=== PATIENT | male | born 1940 | race Caucasian/White ===

== ENCOUNTER 2018-04-23 13:42 | Inpatient (IN) | payer MEDICARE ==
[~2018-04-23] VITALS: Ht 190.5 cm; Wt 83.5 kg
[~2018-04-23 13:42] MED LIST: ARICEPT5 MG PO; GLUCOSAMINE &1 EAC1; MULTI-VITAMIN1 EACH; SINEMET 25-1001 EACH PO; VITAMIN B12-FO1 EACH
[2018-04-23] MEDS ORDERED: SODIUM CHLORIDE 0.9% 1000ML 1,000 ML IV STA (14:07)
[2018-04-23 14:16] LABS: CLARITY,URINE SL CLOUDY (CLEAR); COLOR,URINE YELLOW (YELLOW)
[2018-04-23 14:17] LABS: BILIRUBIN,URINE NEGATIVE (NEGATIVE); KETONES,URINE NEGATIVE (NEGATIVE); LEUKOCYTE ESTERASE ,URINE 2+ (NEGATIVE); NITRITE,URINE NEGATIVE (NEGATIVE); PROTEIN,URINE DIPSTICK 2+ (NEGATIVE); URINE UROBILINOGEN 0.2 mg/dL (0.2 - 1)
[2018-04-23 14:32] LABS: AMORPHOUS SEDIMENT,URINE MODERATE (FEW); BACTERIA,URINE MANY /HPF; WBC,URINE (MAN) 21-50 /HPF (0-5)
[2018-04-23 14:49] LABS: BASOPHILS # (AUTO) 0.1 (0.0-0.1); BASOPHILS % 0.4 % (0.0-1.0); EOSINOPHILS # (AUTO) 0.1 (0.0-0.4); EOSINOPHILS % 0.5 % (0.0-6.0); HEMATOCRIT 38.2 % (38.2-49.6); LYMPHOCYTES # (AUTO) 0.7 (1.0-3.2); LYMPHOCYTES % 5.1 % (18.0-39.1); MEAN CORPUSCULAR HEMOGLOBIN 32.3 pg (28-32); MEAN CORPUSCULAR VOLUME 94.8 fL (81-99); MONOCYTES % 7.4 % (4.4-11.3); NEUTROPHILS % 86.3 % (38.7-80.0); PLATELET COUNT 199 x10e3/uL (140-360); RED BLOOD COUNT 4.03 x10e6/uL (4.3-5.7); RED CELL DISTRIBUTION WIDTH 13.9 % (11.7-14.4)
[2018-04-23 15:00] LABS: INR 1.03; PARTIAL THROMBOPLASTIN TIME 28.3 seconds (23.8-35.5); PROTHROMBIN TIME 14.4 seconds (11.9-14.5)
[2018-04-23 15:07] LABS: ALANINE AMINOTRANSFERASE 13 IU/L (0-55); ALBUMIN 3.1 g/dL (3.5-5.0); ALBUMIN/GLOBULIN RATIO 0.9 (0.8-2.0); ALKALINE PHOSPHATASE 96 IU/L (40-150); ANION GAP 14.9 mmol/L (8-16); BLOOD UREA NITROGEN 41 mg/dL (7-26); BUN/CREATININE RATIO 30 (6-25); CALCIUM 9.5 mg/dL (8.4-10.2); CARBON DIOXIDE 23 mmol/L (22-29); CHLORIDE 106 mmol/L (98-107); CREATINE KINASE 110 IU/L (30-200); CREATININE, SERUM 1.35 mg/dL (0.72-1.25); EST GLOMERULAR FILTRATION RATE 51 ML/MIN (60-); GLUCOSE 104 mg/dL (74-118); LIPASE 36 U/L (8-78); POTASSIUM 3.9 mmol/L (3.5-5.1); SODIUM 140 mmol/L (136-145)
[2018-04-23] MEDS ORDERED: CEFTRIAXONE SOD 1 GM VIAL IV SCH ×2 (15:15→16:00)
[2018-04-23 15:30] LABS: THYROID STIMULATING HORMONE 0.809 uIU/mL (0.350-4.940)
--- NOTE | 2018-04-23 15:31 | Diagnostic Imaging Report ---
EXAMINATION: Head CT HISTORY: Headache. COMPARISON: None. TECHNIQUE: Multidetector axial images were obtained without contrast from the foramen magnum to the vertex . The images were reconstructed using brain and bone algorithms. Thin section brain images were reformatted into coronal and sagittal planes. Image quality: Motion/streaking artifact limits the evaluation of the study. Dose modulation, iterative reconstruction, and/or weight based adjustment of the mA/kV was utilized to reduce the radiation dose to as low as reasonably achievable. FINDINGS: Parenchyma: 1. No abnormal densities. 2. No mass or hemorrhage. No CT evidence of acute territorial vascular insult. Extra-axial spaces:No abnormal density. No extra-axial fluid collections Brain volume: Normal for age. Ventricles: No hydrocephalus or displacement. Arteries: No density suggestive of thrombus. Dural sinuses: No abnormal density. Extra-axial spaces: No abnormal density. Foramen magnum: No mass, Chiari malformation, or basilar invagination. Sella: No obvious mass. Paranasal/mastoid sinuses: Partial opacification of the tip of the right mastoid air cells, likely minimal effusion. Skull/Scalp: No lytic or blastic lesions. No fractures. IMPRESSION: Suboptimal study due to motion. Grossly no acute intracranial abnormalities, particularly no mass, hemorrhage or hydrocephalus. Signed by: Dr. Earnestine Marte M.D. on 04/23/2018 3:28 PM
--- NOTE | 2018-04-23 15:40 | Diagnostic Imaging Report ---
EXAMINATION: CT of the abdomen and pelvis without contrast. TECHNIQUE: Spiral CT images of the abdomen and pelvis were performed from the lung bases to the lesser trochanters. No intravenous contrast was given per renal stone protocol. Coronal and sagittal reformatted images were obtained. COMPARISON: None. CLINICAL HISTORY:Concern for renal stone DISCUSSION: ABSENCE OF INTRAVENOUS CONTRAST DECREASES SENSITIVITY FOR DETECTION OF FOCAL LESIONS AND VASCULAR PATHOLOGY. Examination is further limited secondary to beam hardening artifact from the patient's arms remaining at his sides through the examination. ABDOMEN/PELVIS: LOWER THORAX: Subsegmental atelectasis in the dependent portions of the lower lobes. Trace pericardial effusion. HEPATOBILIARY:No focal hepatic lesion or intrahepatic biliary ductal dilatation. The gallbladder has been removed. SPLEEN: No splenomegaly. PANCREAS: No focal masses or ductal dilatation. ADRENALS: No adrenal nodules. KIDNEYS/URETERS: No hydronephrosis. No renal, ureteral, or bladder calculi. Evaluation for renal mass lesion is markedly limited by beam hardening artifact as described above. PELVIC ORGANS/BLADDER: Suprapubic catheter (balloon retention) lies within the urinary bladder, which is collapsed. Coarse prostatic calcifications. PERITONEUM/RETROPERITONEUM: No ascites. No pneumoperitoneum. LYMPH NODES: No pelvic sidewall, retroperitoneal, or mesenteric lymphadenopathy. VESSELS: Limited evaluation without intravenous contrast. Atherosclerotic calcification of the abdominal aorta without aneurysmal dilatation. GI TRACT: Large amount of fecal material within the rectum. The large bowel contains scattered diverticula but shows no evidence of distention or wall thickening. The appendix is not definitively identified. No right lower quadrant inflammatory change. The stomach is collapsed with prominence of the rugal folds. No small bowel dilatation to suggest obstruction. BONES AND SOFT TISSUES: Small fat-containing right inguinal hernia area otherwise no focal soft tissue abnormalities. No osseous destructive lesions. Multilevel degenerative disc changes of the lumbar spine. IMPRESSION: No CT evidence of urolithiasis. Apparent urinary bladder wall thickening is likely due to decompression around a balloon retention suprapubic catheter. Correlate with urinalysis. Large bowel diverticulosis without evidence of diverticulitis. Large amount of fecal material within the rectum. Correlate for constipation. Trace pericardial effusion. Signed by: Dr. Aftab Lee M.D. on 04/23/2018 3:37 PM
--- NOTE | 2018-04-23 15:55 | Diagnostic Imaging Report ---
Examination: Single AP view of the chest. COMPARISON: None. INDICATION: Shortness of breath DISCUSSION: The lungs are well-inflated. No focal consolidation, pleural effusion, or pneumothorax. Tortuous thoracic aorta with otherwise normal cardiomediastinal contour. No overt pulmonary edema. No acute osseous abnormalities. Degenerative changes of the right shoulder girdle. IMPRESSION: No acute cardiopulmonary abnormality. Signed by: Dr. Aftab Lee M.D. on 04/23/2018 3:52 PM
[2018-04-23 16:50] VITALS: BP 150/85
[2018-04-23] MEDS ORDERED: CHONDROITIN SU100 GM (17:17)
[2018-04-23] MEDS ORDERED: CHOLECALCIFEROL1 GM PO (17:17)
[2018-04-23] MEDS ORDERED: ACIDOPHILUS1 EAC1 (17:17)
[2018-04-23] MEDS ORDERED: ARICEPT5 MG PO (17:17)
[2018-04-23] MEDS ORDERED: GLUCOSAMINE1000 MG (17:17)
[2018-04-23] MEDS ORDERED: ALFUZOSIN HCL10 MG (17:17)
[2018-04-23] MEDS ORDERED: LACTULOSE20 GM/30 M PO (17:17)
[2018-04-23] MEDS ORDERED: LEXAPRO10 MG PO (17:17)
[2018-04-23] MEDS ORDERED: LORAZEPAM0.5 MG PO (17:17)
[2018-04-23 17:30] VITALS: BP 150/85
[2018-04-23] MEDS: ACETAMINOPHEN 325 MG TAB PO PRN (19:43)
[2018-04-23 20:00] VITALS: BP 158/69
[2018-04-23] MEDS: CARBIDOPA/LEVODOPA 25/100 TAB PO SCH (21:21)
[2018-04-24] VITALS (10 sets, daily range): BP systolic 121–159; BP diastolic 57–81
[2018-04-24] MEDS: ACETAMINOPHEN 325 MG TAB PO PRN ×3 (04:45→17:34)
[2018-04-24] MEDS: DOCUSATE SODIUM 100 MG CAP PO SCH ×2 (08:51→17:34)
[2018-04-24] MEDS: FAMOTIDINE 20 MG TAB PO SCH ×2 (08:51→17:34)
[2018-04-24] MEDS: CEFEPIME HCL 1 GM VIAL IV SCH ×2 (08:51→21:31)
[2018-04-24] MEDS: SENNOSIDES 8.6 MG TAB PO SCH ×2 (08:51→21:31)
[2018-04-24] MEDS: ESCITALOPRAM OXALATE 10 MG TAB PO SCH (08:51)
[2018-04-24] MEDS: CARBIDOPA/LEVODOPA 25/100 TAB PO SCH ×3 (08:51→21:31)
[2018-04-24] MEDS: SODIUM CHLORIDE 0.9% 1000ML 1,000 ML IV SCH ×2 (10:49→23:35)
[2018-04-24 11:41] LABS: BASOPHILS % 0.4 % (0.0-1.0); HEMATOCRIT 40.4 % (38.2-49.6); HEMOGLOBIN 13.1 g/dL (14.0-18.0); LYMPHOCYTES # (AUTO) 0.7 (1.0-3.2); LYMPHOCYTES % 6.4 % (18.0-39.1); MEAN CORPUSCULAR HEMOGLOBIN 31.6 pg (28-32); MEAN CORPUSCULAR HGB CONC 32.4 g/dL (31-35); MEAN CORPUSCULAR VOLUME 97.6 fL (81-99); MONOCYTES # (AUTO) 0.9 (0.2-0.8); MONOCYTES % 8.3 % (4.4-11.3); NEUTROPHILS % 84.6 % (38.7-80.0); PLATELET COUNT 158 x10e3/uL (140-360); RED BLOOD COUNT 4.14 x10e6/uL (4.3-5.7); RED CELL DISTRIBUTION WIDTH 14.2 % (11.7-14.4)
[2018-04-24 11:53] LABS: ANION GAP 13.7 mmol/L (8-16); BLOOD UREA NITROGEN 29 mg/dL (7-26); BUN/CREATININE RATIO 25 (6-25); CALCIUM 9.3 mg/dL (8.4-10.2); CARBON DIOXIDE 25 mmol/L (22-29); CHLORIDE 106 mmol/L (98-107); CREATININE, SERUM 1.14 mg/dL (0.72-1.25); EST GLOMERULAR FILTRATION RATE > 60 ML/MIN (60-); GLUCOSE 97 mg/dL (74-118); POTASSIUM 3.7 mmol/L (3.5-5.1); SODIUM 141 mmol/L (136-145)
--- NOTE | 2018-04-24 13:54 | History and Physical ---
PRIMARY CARE PHYSICIAN: Unknown. CHIEF COMPLAINT: Confusion. HISTORY OF PRESENT ILLNESS: This is a 77-year-old male with a history of Parkinson's disease and dementia, now developing confusion and was sent to the hospital. He was found to have urinary tract infection. He was admitted for further evaluation and management. Patient unable to provide any history. PAST MEDICAL HISTORY: Dementia, Parkinson's disease, nonhealing right foot ulcer, and peripheral vascular disease. PAST SURGICAL HISTORY: Unknown. ALLERGIES: PER ELECTRONIC MEDICAL RECORD. FAMILY HISTORY AND SOCIAL HISTORY: Unknown. MEDICATIONS: Per electronic medical record. REVIEW OF SYSTEMS: Unobtainable. PHYSICAL EXAMINATION VITAL SIGNS: Have been reviewed. GENERAL: A tired-appearing man, resting in bed. HEENT: Anicteric. CARDIOVASCULAR: Normal S1 and S2. LUNGS: He has moderate breath sounds. ABDOMEN: Soft, nontender, and nondistended. He has suprapubic catheter in place appearing clean. EXTREMITIES: No edema or calf tenderness. NEUROLOGIC: He is confused, moving all extremities. SKIN: Dry. PSYCHIATRIC: Flat affect. LABS: Reviewed. MEDICATIONS: Reviewed. ASSESSMENT: A 77-year-old man with 1. Complicated catheter-associated urinary tract infection present on admission. 2. Sepsis. 3. Dementia. 4. Acute kidney injury. 5. Parkinson's disease. 6. Fecal retention. 7. Diverticulosis. 8. Physical deconditioning. PLAN 1. Antibiotics, cefepime and IV fluids for sepsis and urinary tract infection. 2. Follow up cultures. 3. Physical therapy consultation. 4. Follow up renal function. 5. Obtain labs now. 6. Bowel regimen. 7. Resume Sinemet. 8. Resume Aricept. 9. Prophylaxis, we will use Lovenox and Pepcid. 10. Disposition, follow up on cultures and labs. Job#: [id number] DANNA
[2018-04-24] MEDS: ENOXAPARIN SOD INJ 40 MG/0.4 ML SYR SC SCH (17:34)
[2018-04-24] MEDS: DONEPEZIL HCL 5 MG TAB PO SCH (21:31)
[2018-04-25] VITALS (7 sets, daily range): BP systolic 126–165; BP diastolic 63–93
[2018-04-25] MEDS: ACETAMINOPHEN 325 MG TAB PO PRN (00:53)
[2018-04-25] MEDS: FAMOTIDINE 20 MG TAB PO SCH ×2 (10:13→17:26)
[2018-04-25] MEDS: CEFEPIME HCL 1 GM VIAL IV SCH ×2 (10:13→21:39)
[2018-04-25] MEDS: ESCITALOPRAM OXALATE 10 MG TAB PO SCH (10:13)
[2018-04-25] MEDS: QUETIAPINE FUMARATE 25 MG TAB PO PRN (10:13)
[2018-04-25] MEDS: SENNOSIDES 8.6 MG TAB PO SCH ×2 (10:13→20:11)
[2018-04-25] MEDS: DOCUSATE SODIUM 100 MG CAP PO SCH ×2 (10:13→17:26)
[2018-04-25] MEDS: CARBIDOPA/LEVODOPA 25/100 TAB PO SCH ×3 (10:13→20:11)
[2018-04-25] MEDS: SODIUM CHLORIDE 0.9% 1000ML 1,000 ML IV SCH (13:16)
[2018-04-25] MEDS: ENOXAPARIN SOD INJ 40 MG/0.4 ML SYR SC SCH (17:26)
[2018-04-25] MEDS: DONEPEZIL HCL 5 MG TAB PO SCH (20:11)
[2018-04-25] MEDS: LORAZEPAM 0.5 MG TAB PO PRN (20:11)
[2018-04-26] VITALS (7 sets, daily range): BP systolic 128–187; BP diastolic 72–90
--- NOTE | 2018-04-26 01:39 | Progress Note ---
DATE: April 25, 2018 ADDENDUM Patient does not have aspiration pneumonia. Job#: [id number] JOSE
--- NOTE | 2018-04-26 01:44 | Progress Note ---
DATE: April 25, 2018 TIME: 8:10 a.m. OVERNIGHT: Gram-negative rods in the urine. REVIEW OF SYSTEMS: Unreliable. PHYSICAL EXAMINATION VITAL SIGNS: Reviewed. GENERAL APPEARANCE: A tired-appearing man resting in bed. HEENT: Anicteric. CARDIOVASCULAR: Normal S1 and S2. LUNGS: Normal breath sounds. ABDOMEN: Soft, nontender, and nondistended. He has suprapubic catheter in place. EXTREMITIES: No edema. SKIN: Dry. PSYCHIATRIC: Flat affect. NEUROLOGICAL: Confused. LABS: Reviewed. MEDICATIONS: Reviewed. ASSESSMENT: A 77-year-old man with: 1. Complicated catheter-associated urinary tract infection, present on admission. 2. Sepsis. 3. Dementia. 4. Acute kidney injury. 5. Parkinson's disease. 6. Fecal retention. 7. Diverticulosis. 8. Physical deconditioning. 9. Gram-negative huy urinary tract infection. PLAN 1. Acute kidney injury, resolving. 2. Continue antibiotics. 3. Follow up cultures. 4. Monitor closely. 5. Continue medication regimen. 6. Prophylaxis for aspiration pneumonia. Job#: [id number] RTY
[2018-04-26] MEDS: FAMOTIDINE 20 MG TAB PO SCH ×2 (07:52→16:51)
[2018-04-26] MEDS: DOCUSATE SODIUM 100 MG CAP PO SCH ×2 (08:00→16:51)
[2018-04-26] MEDS: SENNOSIDES 8.6 MG TAB PO SCH ×2 (08:00→20:43)
[2018-04-26] MEDS: CEFEPIME HCL 1 GM VIAL IV SCH ×2 (08:00→20:43)
[2018-04-26] MEDS: CARBIDOPA/LEVODOPA 25/100 TAB PO SCH ×2 (08:00→14:38)
[2018-04-26] MEDS: ESCITALOPRAM OXALATE 10 MG TAB PO SCH (08:00)
[2018-04-26] MEDS ORDERED: CARBIDOPA/LEVODOPA 25/100 TAB PO SCH (15:00)
[2018-04-26] MEDS: ENOXAPARIN SOD INJ 40 MG/0.4 ML SYR SC SCH (16:51)
[2018-04-26] MEDS: SODIUM CHLORIDE 0.9% 1000ML 1,000 ML IV SCH ×2 (19:04→22:00)
[2018-04-26] MEDS: LORAZEPAM 0.5 MG TAB PO PRN (19:33)
[2018-04-26] MEDS: DONEPEZIL HCL 5 MG TAB PO SCH (20:43)
--- NOTE | 2018-04-26 22:03 | Progress Note ---
DATE: April 26, 2018 TIME: 12:50 p.m. OVERNIGHT: No acute events. REVIEW OF SYSTEMS: Unreliable. PHYSICAL EXAMINATION VITAL SIGNS: T 98.4, P 66, R 20, BP 151/78, SpO2 95% on room air. GENERAL APPEARANCE: This is a very tired-appearing man, resting in bed. HEENT: Normocephalic. Oral mucosa dry and intact with fair dentition and midline trachea. CV: S1 and S2 appreciated without any click, murmur, or rub; regular rate noted. LUNGS: Clear to auscultation at bases. ABDOMEN: Soft, nontender, and nondistended. Suprapubic catheter in place and secured by binder placed by nurses staff to avoid displacement. EXTREMITIES: Without edema. SKIN: Dry. PSYCHIATRIC: Flat affect. NEUROLOGIC: Oriented to self only. Follows one-step commands with some difficulty. Bilateral zyglo technician with right greater than left and equally weak. LABS: Reviewed. MEDICATIONS 1. Docusate sodium 100 mg p.o. b.i.d. 2. Pepcid 20 mg b.i.d. 3. Lovenox 20 mg daily. 4. Sinemet t.i.d. 5. Senokot q.12. 6. Cefepime IV q.12. 7. Lexapro 20 mg p.o. daily. 8. Ativan 0.5 mg p.r.n. q.8. 9. Aricept at bedtime. 10. NS at 75. 11. Seroquel q.12 hours p.r.n. agitation. 12. Tylenol p.r.n. ASSESSMENT AND PLAN: This is a 77-year-old man with: 1. Complicated catheter-associated urinary tract infection present on admission. Continue antibiotics. 2. Sepsis, resolving. 3. Dementia. Medications as above. 4. Acute kidney injury. Follow up a.m. values. 5. Parkinson's disease. Sinemet, dosing schedule adjusted per discussion with RN as per my request. 6. Fecal retention. Medications per list. 7. Diverticulosis, monitor. 8. Physical deconditioning. 9. Gram-negative rods urinary tract infection. Continue antibiotics. 10. Prophylaxis. Pepcid and ALVINA. DISPOSITION: Continue with aspiration precaution, medication regimen. Discharge planning discussed with business case analyst on this day. PT eval and treat order noted. Dictated by: Car Steve NP Job#: [id number] RTY
[2018-04-27] VITALS (7 sets, daily range): BP systolic 128–158; BP diastolic 70–83
--- NOTE | 2018-04-27 01:39 | Consultation ---
DATE OF CONSULTATION: REASON FOR CONSULTATION: Urinary tract infection. HISTORY OF PRESENT ILLNESS: Suprapubic tube and urinary tract infection. Unknown urologist, admitted to the hospital with urology consultation for suprapubic tube and urinary tract infection. PAST MEDICAL HISTORY: Dementia, Parkinson's disease, nonhealing right foot ulcer, peripheral vascular disease, chronic suprapubic tube, chronic urinary retention, BPH. MEDICATIONS: Please see MAR. ALLERGIES: Per EMR. FAMILY HISTORY: There is no family available conduct sister that the patient has dementia. REVIEW OF SYSTEMS: Unobtainable secondary to patient's dementia. PHYSICAL EXAMINATION: GENERAL: Elderly male in no acute distress currently. VITALS: Temperature 97.7, pulse 65, respirations 19, and blood pressure 133/72. HEENT: Sclerae anicteric. NECK: Supple. BACK: Without costovertebral tenderness bilaterally. ABDOMEN: Soft and nontender. No palpable masses. No palpable hernias. No palpable inguinal lymphadenopathy. : Normal male external genitalia. Barajas catheter draining clear yellow urine. EXTREMITIES: Edema. Moves all 4 extremities. PSYCH: Mood appropriate. SKIN: normal color. NEUROLOGIC: Alert and oriented to person. PERTINENT LABORATORY DATA: Urinalysis; 21 to 50 whites, 11 to 20 reds. Hemoglobin 13, hematocrit 30, and platelet count 156,000. White blood cell count . Sodium 141, potassium 3.7, chloride 106, bicarb 25, BUN 29, creatinine 1.4, glucose 107, PT 14.44, and PTT of 28.3. IMPRESSION: 1. Chronic urinary retention. 2. Urinary tract infections. 3. Microscopic hematuria. 4. Hypertension. 5. Anemia. 6. Coagulopathy. 7. Neurogenic bladder. PLAN: Attempted to contact the family and left the orders with instructions with the nurses to find out that the patient's stressed the importance of ongoing urologic care for chronic suprapubic tube and urinary tract infections. Thank you for allowing us to participate in the care of your patient. We will be happy to follow along with you. Job#: [id number] TAMERA
[2018-04-27] MEDS: LORAZEPAM 0.5 MG TAB PO PRN ×2 (05:13→15:42)
[2018-04-27 05:48] LABS: BASOPHILS % 0.5 % (0.0-1.0); EOSINOPHILS # (AUTO) 0.3 (0.0-0.4); EOSINOPHILS % 3.9 % (0.0-6.0); HEMATOCRIT 39.7 % (38.2-49.6); HEMOGLOBIN 13.5 g/dL (14.0-18.0); LYMPHOCYTES # (AUTO) 1.2 (1.0-3.2); LYMPHOCYTES % 17.6 % (18.0-39.1); MEAN CORPUSCULAR HEMOGLOBIN 31.4 pg (28-32); MEAN CORPUSCULAR VOLUME 92.3 fL (81-99); MONOCYTES # (AUTO) 0.7 (0.2-0.8); MONOCYTES % 10.8 % (4.4-11.3); NEUTROPHILS # (AUTO) 4.5 (2.1-6.9); PLATELET COUNT 185 x10e3/uL (140-360); RED CELL DISTRIBUTION WIDTH 13.7 % (11.7-14.4)
[2018-04-27 06:32] LABS: ALANINE AMINOTRANSFERASE 30 IU/L (0-55); ALBUMIN 2.8 g/dL (3.5-5.0); ALBUMIN/GLOBULIN RATIO 0.7 (0.8-2.0); ALKALINE PHOSPHATASE 102 IU/L (40-150); ANION GAP 11.1 mmol/L (8-16); BLOOD UREA NITROGEN 18 mg/dL (7-26); BUN/CREATININE RATIO 21 (6-25); CALCIUM 8.6 mg/dL (8.4-10.2); CARBON DIOXIDE 29 mmol/L (22-29); CHLORIDE 99 mmol/L (98-107); CREATININE, SERUM 0.86 mg/dL (0.72-1.25); EST GLOMERULAR FILTRATION RATE > 60 ML/MIN (60-); GLUCOSE 109 mg/dL (74-118); POTASSIUM 3.1 mmol/L (3.5-5.1); SODIUM 136 mmol/L (136-145)
[2018-04-27] MEDS: CARBIDOPA/LEVODOPA 25/100 TAB PO SCH ×3 (07:22→14:35)
[2018-04-27] MEDS: CEFEPIME HCL 1 GM VIAL IV SCH ×2 (08:30→21:55)
[2018-04-27] MEDS: SENNOSIDES 8.6 MG TAB PO SCH ×2 (09:18→21:00)
[2018-04-27] MEDS: ESCITALOPRAM OXALATE 10 MG TAB PO SCH (09:18)
[2018-04-27] MEDS: FAMOTIDINE 20 MG TAB PO SCH ×2 (09:18→15:42)
[2018-04-27] MEDS: DOCUSATE SODIUM 100 MG CAP PO SCH ×2 (09:18→15:42)
[2018-04-27] MEDS: SODIUM CHLORIDE 0.9% 1000ML 1,000 ML IV SCH ×2 (09:18→22:00)
[2018-04-27] MEDS ORDERED: POTASSIUM CHLORIDE 20 MEQ TAB CR PO STA (09:38)
[2018-04-27] MEDS: ACETAMINOPHEN 325 MG TAB PO PRN (14:35)
[2018-04-27] MEDS: ENOXAPARIN SOD INJ 40 MG/0.4 ML SYR SC SCH (15:42)
[2018-04-27] MEDS: DONEPEZIL HCL 5 MG TAB PO SCH (21:00)
[2018-04-27] MEDS ORDERED: SODIUM CHLORIDE 0.9% 50ML 50 ML ONE (21:52)
[2018-04-28] VITALS (8 sets, daily range): BP systolic 119–179; BP diastolic 69–91
[2018-04-28] MEDS: CARBIDOPA/LEVODOPA 25/100 TAB PO SCH ×3 (05:39→15:12)
[2018-04-28] MEDS: HYDRALAZINE HCL 25 MG TAB PO SCH ×4 (05:45→21:30)
[2018-04-28 06:44] LABS: POTASSIUM 3.7 mmol/L (3.5-5.1)
[2018-04-28] MEDS: FAMOTIDINE 20 MG TAB PO SCH ×2 (09:25→16:05)
[2018-04-28] MEDS: CEFEPIME HCL 1 GM VIAL IV SCH ×2 (09:26→21:30)
[2018-04-28] MEDS: ESCITALOPRAM OXALATE 10 MG TAB PO SCH (09:26)
[2018-04-28] MEDS: DOCUSATE SODIUM 100 MG CAP PO SCH ×2 (09:26→16:05)
[2018-04-28] MEDS: SENNOSIDES 8.6 MG TAB PO SCH ×2 (09:26→21:30)
[2018-04-28] MEDS: LORAZEPAM 0.5 MG TAB PO PRN (10:38)
[2018-04-28] MEDS: SODIUM CHLORIDE 0.9% 1000ML 1,000 ML IV SCH (14:00)
[2018-04-28] MEDS: ENOXAPARIN SOD INJ 40 MG/0.4 ML SYR SC SCH (16:05)
--- NOTE | 2018-04-28 20:49 | Progress Note ---
DATE: April 27, 2018 TIME: 9 a.m. OVERNIGHT: No events. REVIEW OF SYSTEMS: Unobtainable. PHYSICAL EXAMINATION: VITAL SIGNS: Reviewed. GENERAL APPEARANCE: Tired-appearing man resting in bed. HEENT: Anicteric. CARDIOVASCULAR: Normal S1 and S2. LUNGS: Moderate breath sounds. ABDOMEN: Soft, nontender, nondistended. He has suprapubic catheter in place. EXTREMITIES: No edema. SKIN: Dry. PSYCHIATRIC: Flat affect. NEUROLOGICAL: Confused. LABS: Reviewed. MEDICATIONS: Reviewed. ASSESSMENT: A 77-year-old man. 1. Complicated catheter-associated urinary tract infection present on admission. 2. Sepsis. 3. Dementia. 4. Acute kidney injury. 5. Parkinson's disease. 6. Fecal retention. 7. Diverticulosis. 8. Physical deconditioning. 9. Proteus mirabilis urinary tract infection. PLAN: 1. Replace potassium. 2. Treatment proteus mirabilis UTI. 3. LTAC evaluation. 4. Physical therapy. Job#: [id number]
--- NOTE | 2018-04-28 20:53 | Progress Note ---
DATE: April 28, 2018 TIME OF SERVICE: 8:15 a.m. SUBJECTIVE: Overnight no events. REVIEW OF SYSTEMS: Unobtainable. PHYSICAL EXAMINATION VITAL SIGNS: Reviewed. GENERAL APPEARANCE: A tired-appearing man resting in bed. HEENT: Anicteric. CARDIOVASCULAR: Normal S1 and S2. No murmurs. LUNGS: Normal breath sounds. ABDOMEN: Soft, nontender, and nondistended. He has suprapubic catheter in place. EXTREMITIES: No edema. SKIN: Dry. PSYCHIATRIC: Flat affect. NEUROLOGICAL: Confused. LABS: Reviewed. MEDICATIONS: Reviewed. ASSESSMENT: A 77-year-old man with: 1. Complicated catheter-associated urinary tract infection, present on admission. 2. Sepsis. 3. Dementia. 4. Acute kidney injury. 5. Parkinson's disease. 6. Fecal retention. 7. Diverticulosis. 8. Physical deconditioning. 9. Hypertension. PLAN 1. Continue treatment for catheter associated urinary tract infection. 2. Continue physical therapy. 3. Recheck potassium. 4. Renal function improving. 5. Discharge planning. Job#: [id number]
[2018-04-28] MEDS: DONEPEZIL HCL 5 MG TAB PO SCH (21:30)
[2018-04-28] MEDS ORDERED: SODIUM CHLORIDE 0.9% 50ML 50 ML ONE (21:44)
[2018-04-29] VITALS (7 sets, daily range): BP systolic 142–168; BP diastolic 67–97
[2018-04-29] MEDS: LORAZEPAM 0.5 MG TAB PO PRN ×2 (00:05→23:54)
[2018-04-29] MEDS: QUETIAPINE FUMARATE 25 MG TAB PO PRN (02:09)
[2018-04-29] MEDS: SODIUM CHLORIDE 0.9% 1000ML 1,000 ML IV SCH ×2 (02:13→16:37)
[2018-04-29] MEDS: CARBIDOPA/LEVODOPA 25/100 TAB PO SCH ×3 (05:54→14:20)
[2018-04-29] MEDS ORDERED: SEROQUEL25 MG PO (07:27)
[2018-04-29] MEDS ORDERED: HYDRALAZINE HCL25 MG PO (07:27)
[2018-04-29] MEDS ORDERED: KEFLEX500 MG PO ×2 (07:29→07:53)
--- NOTE | 2018-04-29 08:15 | Discharge Summary ---
PRINCIPAL DIAGNOSES: 1. Complicated catheter-associated urinary tract infection, present on admission. 2. Sepsis. 3. Dementia. 4. Acute kidney injury. 5. Parkinson's disease. 6. Fecal retention. 7. Diverticulosis. 8. Physical deconditioning. 9. Hypertension. SECONDARY DIAGNOSIS: Hypertension. CHIEF COMPLAINT AND HISTORY OF PRESENT ILLNESS: Please refer to the H\T\P. HOSPITAL COURSE: The patient was found to have catheter-associated urinary tract infection present on admission positive with proteus treated with cefepime. He will be transitioned to Keflex upon discharge. He had sepsis, which is resolving. Dementia and acute kidney injury. The acute kidney injury has been improving. Positive for fecal retention with bowel regimen. Physical deconditioning, received physical therapy. Patient is currently appropriate for discharge with followup. DISCHARGE MEDICATIONS: Per electronic medical record. FOLLOWUP: With primary care doctor in 1 week. CONDITION ON DISCHARGE: Stable and improving. DISCHARGE LOCATION: Nursing facility. YINA DONNELLY MD Job#: [id number]
[2018-04-29] MEDS: ESCITALOPRAM OXALATE 10 MG TAB PO SCH (09:17)
[2018-04-29] MEDS: CEFEPIME HCL 1 GM VIAL IV SCH ×2 (09:17→21:00)
[2018-04-29] MEDS: HYDRALAZINE HCL 25 MG TAB PO SCH ×3 (09:17→21:00)
[2018-04-29] MEDS: DOCUSATE SODIUM 100 MG CAP PO SCH ×2 (09:17→16:34)
[2018-04-29] MEDS: FAMOTIDINE 20 MG TAB PO SCH ×2 (09:17→16:34)
[2018-04-29] MEDS: SENNOSIDES 8.6 MG TAB PO SCH ×2 (09:17→21:00)
--- NOTE | 2018-04-29 14:19 | Diagnostic Imaging Report ---
EXAM: XR CHEST 1 VIEW DATE: 04/29/2018 1:51 PM INDICATION: PICC line placement COMPARISON: None FINDINGS: Lines and Tubes: Right PICC with tip overlying cavoatrial junction. Heart and Mediastinum: No acute cardiomediastinal findings. Lungs and Pleura: Mild scattered airspace opacities. Bones and Soft Tissues: Right glenohumeral joint and left acromioclavicular joint degenerative changes. IMPRESSION: 1. Right PICC tip overlying cavoatrial junction. 2. Scattered airspace opacities suggesting edema and/or pneumonia. Signed by: Dr. Silverio Nath MD on 04/29/2018 2:16 PM
[2018-04-29] MEDS: ENOXAPARIN SOD INJ 40 MG/0.4 ML SYR SC SCH (16:34)
[2018-04-29] MEDS: DONEPEZIL HCL 5 MG TAB PO SCH (21:00)
[2018-04-30 04:15] VITALS: BP 127/87
[2018-04-30] MEDS: SODIUM CHLORIDE 0.9% 1000ML 1,000 ML IV SCH (04:20)
[2018-04-30] MEDS: CARBIDOPA/LEVODOPA 25/100 TAB PO SCH ×2 (05:30→10:07)
[2018-04-30 07:35] VITALS: BP 147/77
[2018-04-30] MEDS: FAMOTIDINE 20 MG TAB PO SCH (08:10)
[2018-04-30] MEDS: DOCUSATE SODIUM 100 MG CAP PO SCH (08:11)
[2018-04-30] MEDS: ESCITALOPRAM OXALATE 10 MG TAB PO SCH (08:11)
[2018-04-30] MEDS: SENNOSIDES 8.6 MG TAB PO SCH (08:11)
[2018-04-30 08:30] VITALS: BP 147/77
[2018-04-30] MEDS ORDERED: CEFEPIME HCL 1 GM VIAL IV SCH (09:00)
[2018-04-30] MEDS ORDERED: HYDRALAZINE HCL 25 MG TAB PO SCH (09:00)
--- OUTSIDE RECORDS SUMMARY | 2018-05-05 10:46 | XMS REPORT ---
[facility] Address Unknown Phone Unavailable Care Team Providers Care Monotype Setter Name Role Phone YINA DONNELLY Unavailable Unavailable Payers Payer Name Policy Type Policy Number Effective Date Expiration Date Problems This patient has no known problems. Allergies, Adverse Reactions, Alerts Allergy Name Allergy Type Status Severity Reaction(s) Onset Date Inactive Date Treating Clinician Comments ziprasidone DA Active SV 2018-03-11 00:00:00 Medications This patient has no known medications. Results Test Description Test Time Test Comments Text Results Atomic Results Result Comments CHEST XRAY LINE PLACEMENT 2018-04-29 14:16:00 [place] [address] Patient Name: SWATI MORRIS MR #: [id number] : 1940 Age/Sex: 77/M Req #: [id number] Adm Physician: YINA DONNELLY MD Ordered by: YINA DONNELLY MD Report #: [id number] Location: [facility] Room/Bed: [facility] Procedure: [id number] DX/CHEST XRAY LINE PLACEMENT Exam Date: Exam Time: REPORT STATUS: Signed EXAM: XR CHEST 1 VIEW DATE: 04/29/2018 1:51 PM INDICATION: PICC line placement COMPARISON: None FINDINGS: Lines and Tubes: Right PICC with tip overlying cavoatrial junction. Heart and Mediastinum: No acute cardiomediastinal findings. Lungs and Pleura: Mild scattered airspace opacities. Bones and Soft Tissues: Right glenohumeral joint and left acromioclavicular joint degenerative changes. IMPRESSION: 1. Right PICC tip overlying cavoatrial junction. 2. Scattered airspace opacities suggesting edema and/or pneumonia. Signed by: Dr. Silverio Nath MD on 04/29/2018 2:16 PM Dictated By: SILVERIO NATH MD 15 Transcribed By: SOHEILA on 04/29/181415 COPY TO: YINA DONNELLY MD CHEST SINGLE (PORTABLE) 2018-04-23 15:50:00 [place] [address] Patient Name: SWATI MORRIS MR #: [id number] : 1940 Age/Sex: 77/M Req #: [id number] Adm Physician: Ordered by: DOMINICK STALEY RAIL ASSEMBLER Report #: [id number] Location: ER Room/Bed: Procedure: [id number] DX/CHEST SINGLE (PORTABLE) Exam Date: Exam Time: REPORT STATUS: Signed Examination: Single AP view of the chest. COMPARISON: None. INDICATION: Shortness of breath DISCUSSION: The lungs are well- inflated. No focal consolidation, pleural effusion, or pneumothorax. Tortuous thoracic aorta with otherwise normal cardiomediastinal contour. No overt pulmonary edema. No acute osseous abnormalities. Degenerative changes of the right shoulder girdle. IMPRESSION: No acute cardiopulmonary abnormality. Signed by: Dr. Rafaela Wood M.D. on 04/23/2018 3:52 PM Dictated By: RAFAELA WOOD MD 51 Transcribed By: SOHEILA on 04/23/181551 COPY TO: DOMINICK STALEY NP CT BRAIN WO 2018-04-23 15:26:00 [place] [address] Patient Name: SWATI MORRIS MR #: [id number] : 1940 Age/Sex: 77/M Req #: [id number] Adm Physician: Ordered by: DOMINICK STALEY NP Report #: [id number] Location: ER Room/Bed: Procedure: [id number] CT/CT BRAIN WO Exam Date: 04/23/18 Exam Time: 1500 REPORT STATUS: Signed EXAMINATION: Head CT HISTORY: Headache. COMPARISON: None. TECHNIQUE: Multidetector axial images were obtained without contrast from the foramen magnum to the vertex . The images were reconstructed using brain and bone algorithms. Thin section brain images were reformatted into coronal and sagittal planes. Image quality: Motion/streaking artifact limits the evaluation of the study. Dose modulation, iterative reconstruction, and/or weight based adjustment of the mA/kV was utilized to reduce the radiation dose to as low as reasonably achievable. FINDINGS: Parenchyma: 1. No abnormal densities. 2. No mass or hemorrhage. No CT evidence of acute territorial vascular insult. Extra-axial spaces:No abnormal density. No extra-axial fluid collections Brain volume: Normal for age. Ventricles: No hydrocephalus or displacement. Arteries: No density suggestive of thrombus. Dural sinuses: No abnormal density. Extra-axial spaces: No abnormal density. Foramen magnum: No mass, Chiari malformation, or basilar invagination. Sella: No obvious mass. Paranasal/mastoid sinuses: Partial opacification of the tip of the right mastoid air cells, likely minimal effusion. Skull/Scalp: No lytic or blastic lesions. No fractures. IMPRESSION: Suboptimal study due to motion. Grossly no acute intracranial abnormalities, particularly no mass, hemorrhage or hydrocephalus. Signed by: Dr. Zuly Marte M.D. on 04/23/2018 3:28 PM Dictated By: ZULY MARTE MD 1528 Transcribed By: SOHEILA on 04/23/18 1528 COPY TO: DOMINICK STALEY RAIL ASSEMBLER CT ABDOMEN/PELVIS WO 2018-04-23 15:26:00 [place] [address] Patient Name: SWATI MORRIS MR #: [id number] : 1940 Age/Sex: 77/M Req #: [id number] Adm Physician: Ordered by: DOMINICK STALEY RAIL ASSEMBLER Report #: [id number] Location: ER Room/Bed: Procedure: [id number] CT/CT ABDOMEN/PELVIS WO Exam Date: 04/23/18 Exam Time: 1500 REPORT STATUS: Signed EXAMINATION: CT of the abdomen and pelvis without contrast. TECHNIQUE: Spiral CT images of the abdomen and pelvis were performed from the lung bases to the lesser trochanters. No intravenous contrast was given per renal stone protocol. Coronal and sagittal reformatted images were obtained. COMPARISON: None. CLINICAL HISTORY:Concern for renal stone DISCUSSION: ABSENCE OF INTRAVENOUS CONTRAST DECREASES SENSITIVITY FOR DETECTION OF FOCAL LESIONS AND VASCULAR PATHOLOGY. Examination is further limited secondary to beam hardening artifact from the patient's arms remaining at his sides through the examination. ABDOMEN/PELVIS: LOWER THORAX: Subsegmental atelectasis in the dependent portions of the lower lobes. Trace pericardial effusion. HEPATOBILIARY:No focal hepatic lesion or intra hepatic biliary ductal dilatation. The gallbladder has been removed. SPLEEN: No splenomegaly. PANCREAS: No focal masses or ductal dilatation. ADRENALS: No adrenal nodules. KIDNEYS/URETERS: No hydronephrosis. No renal, ureteral, or bladder calculi. Evaluation for renal mass lesion is markedly limited by beam hardening artifact as described above. PELVIC ORGANS/BLADDER: Suprapubic catheter (balloon retention) lies within the urinary bladder, which is collapsed. Coarse prostatic calcifications. PERITONEUM/RETROPERITONEUM: No ascites. No pneumoperitoneum. LYMPH NODES: No pelvic sidewall, retroperitoneal, or mesenteric lymphadenopathy. VESSELS: Limited evaluation without intravenous contrast. Atherosclerotic calcification of the abdominal aorta without aneurysmal dilatation. GI TRACT: Large amount of fecal material within the rectum. The large bowel contains scattered diverticula but shows no evidence of distention or wall thickening. The appendix is not definitively identified. No right lower quadrant inflammatory change. The stomach is collapsed with prominence of the rugal folds. No small bowel dilatation to suggest obstruction. BONES AND SOFT TISSUES: Small fat-containing right inguinal hernia area otherwise no focal soft tissue abnormalities. No osseous destructive lesions. Multilevel degenerative disc changes of the lumbar spine. IMPRESSION: No CT evidence of urolithiasis. Apparent urinary bladder wall thickening is likely due to decompression around a balloon retention suprapubic catheter. Correlate with urinalysis. Large bowel diverticulosis without evidence of diverticulitis. Large amount of fecal material within the rectum. Correlate for constipation. Trace pericardial effusion. Signed by: Dr. Rafaela Wood M.D. on 04/23/2018 3:37 PM Dictated By: RAFAELA WOOD MD 1534 Transcribed By: SOHEILA on 04/23/18 1537 COPY TO: DOMINICK STALEY NP
--- OUTSIDE RECORDS SUMMARY | 2018-05-05 10:46 | XMS REPORT | Clinical Summary ---
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 Disp. Refills Start End Date Status Date donepezil (ARICEPT) 10 MG Take 10 mg by mouth Active tablet nightly. carbidopa-levodopa Take 2 tablets by mouth 3 Active (SINEMET CR) 25-100 mg (three) times a day. per CR tablet glucosamine HCl 1,500 mg Take 1 tablet by mouth. Active tablet CHONDROITIN SULFATE A Take by mouth. 1200 mg 1 Active (CHONDROITIN SULFATE tablet po TID ORAL) cholecalciferol, vitamin Take 2,000 Units by mouth Active D3, (VITAMIN D3) 2,000 daily. unit capsule capsule MULTIVITAMIN ORAL Take 1 tablet by mouth Active daily. cyanocobalamin 1000 MCG Take 1,000 mcg by mouth Active tablet daily. acetaminophen (TYLENOL) Take 500 mg by mouth Active 500 MG tablet every 6 (six) hours as needed for mild pain. entacapone (COMTAN) 200 Take 200 mg by mouth 3 Active mg tablet (three) times a day. carbidopa-levodopa Take 2 tablets by mouth 3 02/13/20 Discontin (SINEMET CR) 25-100 mg (three) times a day. 18 ued per CR tablet Active Problems Problem Noted Date Urinary retention 02/12/2018 Parkinson's disease (HCC) 07/01/2017 Memory loss 07/01/2017 Hypercholesteremia 07/01/2017 Arthritis of both hands 07/01/2017 Unsteady gait 07/01/2017 Encounters Date Type Specialty Care Team Description 02/12/2018 Emergency General Internal Medicine Dutch Hummel Urinary retention - (Primary Dx); 02/13/2018 Vlad Hanson MD Hematuria, unspecified type 07/01/2017 Office Visit Family Medicine Tova Salas, Parkinson's disease (Primary Dx); Memory loss; Hypercholesteremia; Arthritis of both hands; Unsteady gait after 04/22/2017 Family History Medical History Relation Name Comments Abnormal EKG Father Heart attack Father Heart disease Father Heart failure Father Hyperlipidemia Father Hypertension Father Kidney failure Mother Diabetes Sister Hyperlipidemia Sister Macular degeneration Sister Relation Name Status Comments Father (Age 62) Mother (Age 94) Sister Alive Social History Tobacco Use Types Packs/Day Years Used Date Never Smoker Smokeless Tobacco: Never Used Alcohol Use Drinks/Week oz/Week Comments No Sex Assigned at Date Recorded Not on file Last Filed Vital Signs Vital Sign Reading Time Taken Blood Pressure 167/88 02/13/2018 3:54 PM CDT Pulse 69 02/13/2018 3:54 PM CDT Temperature 36.7 C (98 F) 02/13/2018 3:54 PM CDT Respiratory Rate 22 02/13/2018 3:54 PM CDT Oxygen Saturation 98% 02/13/2018 3:54 PM CDT Inhaled Oxygen - - Concentration Weight 82.1 kg (181 lb) 02/12/2018 3:56 PM CDT Height 190.5 cm (6' 3") 02/12/2018 3:56 PM CDT Body Mass Index 22.62 02/12/2018 3:56 PM CDT Plan of Treatment Health Maintenance Due Date Last Done Comments SHINGRIX VACCINE (#1) 1988 ZOSTER VACCINE 1998 PNEUMOCOCCAL 12/23/2003 POLYSACCHARIDE VACCINE AGE 65 AND OVER PNEUMOCOCCAL-13 12/23/2003 INFLUENZA VACCINE 02/18/2018 Procedures Procedure Name Priority Date/Time Associated Diagnosis Comments BLOOD CULTURE, AEROBIC & Routine 02/13/2018 Results for this ANAEROBIC 4:48 AM CDT procedure are in the results section. ZZESTIMATED GFR STAT 02/12/2018 Results for this 5:56 PM CDT procedure are in the results section. LIPASE LEVEL STAT 02/12/2018 Results for this 5:56 PM CDT procedure are in the results section. HEPATIC FUNCTION PANEL STAT 02/12/2018 Results for this 5:56 PM CDT procedure are in the results section. BASIC METABOLIC PANEL STAT 02/12/2018 Results for this 5:56 PM CDT procedure are in the results section. HC COMPLETE BLD COUNT STAT 02/12/2018 Results for this W/AUTO DIFF 5:56 PM CDT procedure are in the results section. URINALYSIS SCREEN AND Routine 02/12/2018 Results for this MICROSCOPY, WITH REFLEX 5:56 PM CDT procedure are in the TO CULTURE results section. URINE CULTURE Routine 02/12/2018 Results for this 5:56 PM CDT procedure are in the results section. BLOOD CULTURE, AEROBIC & Routine 02/12/2018 Results for this ANAEROBIC 5:56 PM CDT procedure are in the results section. after 04/22/2017 Results * Blood culture, aerobic & anaerobic (02/13/2018 4:48 AM) Only the most recent of 2 results within the time period is included. Blood culture isolate No growth after 5 days of [facility] DEPARTMENT OF incubation. PATHOLOGY AND Comment: GENOMIC MEDICINE Specimen Information Specimen Source: Blood Specimen Site: Unspecified Specimen Blood Performing Organization Address City/State/Zipcode Phone Number [facility] DEPARTMENT OF [address] [place] [address] PATHOLOGY AND GENOMIC MEDICINE * Urinalysis screen and microscopy, with reflex to culture (02/12/2018 5:56 PM) Specimen site Catheterized [facility] DEPARTMENT OF PATHOLOGY AND GENOMIC MEDICINE Color, UA Yellow [facility] DEPARTMENT OF PATHOLOGY AND GENOMIC MEDICINE Appearance, UA Clear [facility] DEPARTMENT OF PATHOLOGY AND GENOMIC MEDICINE Specific gravity, UA 1.016 1.001 - 1.035 [facility] DEPARTMENT OF PATHOLOGY AND GENOMIC MEDICINE pH, UA 6.0 5.0 - 8.5 [facility] DEPARTMENT OF PATHOLOGY AND GENOMIC MEDICINE Protein, UA Negative Negative [facility] DEPARTMENT OF PATHOLOGY AND GENOMIC MEDICINE Glucose, UA Negative Negative [facility] DEPARTMENT OF PATHOLOGY AND GENOMIC MEDICINE Ketones, UA Trace (A) Negative [facility] DEPARTMENT OF PATHOLOGY AND GENOMIC MEDICINE Bilirubin, UA Negative Negative [facility] DEPARTMENT OF PATHOLOGY AND GENOMIC MEDICINE Blood, UA Negative Negative [facility] DEPARTMENT OF PATHOLOGY AND GENOMIC MEDICINE Nitrite, UA Negative Negative [facility] DEPARTMENT OF PATHOLOGY AND GENOMIC MEDICINE Urobilinogen, UA Negative <2.0 [facility] DEPARTMENT OF PATHOLOGY AND GENOMIC MEDICINE Leukocyte esterase, UA Negative Negative [facility] DEPARTMENT OF PATHOLOGY AND GENOMIC MEDICINE WBC, UA 0-5 0 - 1 /HPF [facility] DEPARTMENT OF PATHOLOGY AND GENOMIC MEDICINE RBC, UA 0-5 0 - 5 /HPF [facility] DEPARTMENT OF PATHOLOGY AND GENOMIC MEDICINE Bacteria, UA None seen None seen [facility] DEPARTMENT OF PATHOLOGY AND GENOMIC MEDICINE Yeast, UA None seen [facility] DEPARTMENT OF PATHOLOGY AND GENOMIC MEDICINE Yeast with pseudohyphae, None seen [facility] PATHOLOGY AND GENOMIC MEDICINE Specimen Urine Performing Organization Address City/[facility] Cent[facility]ode Phone Number [facility] [id number] [place] [address] [place] [phone] PATHOLOGY AND GENOMIC [facility] * Estimated GFR (02/12/2018 5:56 PM) GFR Non Af Amer 81 mL/min/1.[address] [facility] DEPARTMENT OF PATHOLOGY AND GENOMIC MEDICINE GFR Af Amer >90 mL/min/1.[address] [facility] DEPARTMENT OF Comment: PATHOLOGY AND Chronic kidney disease: <60 GENOMIC MEDICINE mL/min/1.73m2 Kidney failure: <15 mL/min/1.73m2 The estimated GFR is calculated from the IDMS-traceable Modification of Diet in Renal Disease Equation. The accuracy of the calculation is poor when the creatinine is normal. Calculated values >90 mL/min/1.73m2 are not reported. This equation has not been validated in children (<18 years), women, the elderly (>70 years), or ethnic groups other than Caucasians and Americans. Specimen Plasma specimen Performing Organization Address City/[facility] Cent[facility]ode Phone Number [address] [place] [phone] PATHOLOGY [facility] * CBC with platelet and differential (02/12/2018 5:56 PM) WBC 9.95 4.50 - 11.00 k/uL [facility] DEPARTMENT OF PATHOLOGY AND GENOMIC MEDICINE RBC 3.88 (L) 4.40 - 6.00 m/uL [facility] DEPARTMENT OF PATHOLOGY AND GENOMIC MEDICINE HGB 12.3 (L) 14.0 - 18.0 g/dL [facility] DEPARTMENT OF PATHOLOGY AND GENOMIC MEDICINE HCT 37.2 (L) 41.0 - 51.0 % [facility] DEPARTMENT OF PATHOLOGY AND GENOMIC MEDICINE MCV 95.9 82.0 - 100.[address] [facility] DEPARTMENT OF PATHOLOGY AND GENOMIC MEDICINE MCH 31.7 27.0 - 34.[address] [facility] DEPARTMENT OF PATHOLOGY AND GENOMIC MEDICINE MCHC 33.1 31.0 - 37.0 g/dL [facility] DEPARTMENT OF PATHOLOGY AND GENOMIC MEDICINE RDW - SD 51.6 37.0 - 55.[address] [facility] DEPARTMENT OF PATHOLOGY AND GENOMIC MEDICINE MPV 10.3 8.8 - 13.[address] [facility] DEPARTMENT OF PATHOLOGY AND GENOMIC MEDICINE Platelet count 220 150 - 400 k/uL [facility] DEPARTMENT OF PATHOLOGY AND GENOMIC MEDICINE Nucleated RBC 0.00 /[address] [facility] DEPARTMENT OF PATHOLOGY AND GENOMIC MEDICINE Neutrophils 73.1 (H) 39.0 - 69.0 % [facility] DEPARTMENT OF PATHOLOGY AND GENOMIC MEDICINE Lymphocytes 18.6 (L) 25.0 - 45.0 % [facility] DEPARTMENT OF PATHOLOGY AND GENOMIC MEDICINE Monocytes 6.9 0.0 - 10.0 % [facility] DEPARTMENT OF PATHOLOGY AND GENOMIC MEDICINE Eosinophils 0.7 0.0 - 5.0 % [facility] DEPARTMENT OF PATHOLOGY AND GENOMIC MEDICINE Basophils 0.4 0.0 - 1.0 % [facility] DEPARTMENT OF PATHOLOGY AND GENOMIC MEDICINE Specimen Blood Performing Organization Address [facility] Centercoms Phone Number [address] [place] [address] [facility] * Urine culture (02/12/2018 5:56 PM) Urine culture SEE COMMENTComment: [facility] DEPARTMENT OF Bacteriuria screen negative. PATHOLOGY AND [facility] MEDICINE Specimen Urine Performing Organization Address [facility] Phone Number [address] [place] [address] [facility] * Lipase level (02/12/2018 5:56 PM) Lipase 94 (H) 13 - 60 U/L [facility] DEPARTMENT OF PATHOLOGY AND GENOMIC MEDICINE Specimen Plasma specimen Performing Organization Address [facility] Center[facility] Phone Number [address] [place] [address] [facility] * Hepatic function panel (02/12/2018 5:56 PM) Albumin 4.1 3.5 - 5.0 g/dL [facility] DEPARTMENT OF PATHOLOGY AND GENOMIC MEDICINE Total bilirubin 0.3 0.0 - 1.2 mg/dL [facility] DEPARTMENT OF PATHOLOGY AND GENOMIC MEDICINE Bilirubin direct <0.1 0.0 - 0.3 mg/dL [facility] DEPARTMENT OF PATHOLOGY AND GENOMIC MEDICINE Alkaline phosphatase 128 40 - 129 U/L [facility] DEPARTMENT OF PATHOLOGY AND GENOMIC MEDICINE Protein 7.6 6.3 - 8.3 g/dL [facility] DEPARTMENT OF Comment: PATHOLOGY AND [place] GENOMIC MEDICINE 4.6-7.0 g/dL 1 week 4.4-7.6 g/dL 7 months-1year 5.1-7.3 g/dL 1-2 years5.6-7 .5 g/dL >3 years6.0-8 .0 g/dL 18-150 6.3-8.3 g/dL ALT 25 5 - 50 U/L [facility] DEPARTMENT OF PATHOLOGY AND GENOMIC MEDICINE AST 23 10 - 50 U/L [facility] DEPARTMENT OF PATHOLOGY AND GENOMIC MEDICINE Specimen Plasma specimen Performing Organization Address City/[facility] Centercode Phone Number [facility] DEPARTMENT [address] [place] [address] [facility] * Basic metabolic panel (02/12/2018 5:56 PM) Sodium 140 135 - 148 mEq/L [facility] DEPARTMENT OF PATHOLOGY AND GENOMIC MEDICINE Potassium 4.2 3.5 - 5.0 mEq/L [facility] DEPARTMENT OF PATHOLOGY AND GENOMIC MEDICINE Chloride 100 98 - 112 mEq/L [facility] DEPARTMENT OF PATHOLOGY AND GENOMIC MEDICINE CO2 28 24 - 31 mEq/L [facility] DEPARTMENT OF PATHOLOGY AND GENOMIC MEDICINE Anion gap 12@ANIO 7 - 15 mEq/L [facility] DEPARTMENT OF PATHOLOGY AND GENOMIC MEDICINE BUN 31 (H) 8 - 23 mg/dL [facility] DEPARTMENT OF PATHOLOGY AND GENOMIC MEDICINE Creatinine 0.9 0.7 - 1.2 mg/dL [facility] DEPARTMENT OF PATHOLOGY AND GENOMIC MEDICINE Glucose 93 65 - 99 mg/dL [facility] DEPARTMENT OF PATHOLOGY AND GENOMIC MEDICINE Calcium 9.4 8.8 - 10.2 mg/dL [facility] DEPARTMENT OF PATHOLOGY AND GENOMIC MEDICINE Specimen Plasma specimen Performing Organization Address City/[facility] Centercode Phone Number [facility] [place] [place] [address] [place] [address] PATHOLOGY AND GENOMIC MEDICINE after 04/22/2017 Insurance Payer Benefit Subscriber ID Type Phone Address Plan / Group MEDICARE MEDICARE xxxxxxxxxx Medicare [place], [place] [address]
--- OUTSIDE RECORDS SUMMARY | 2018-05-05 10:51 | XMS REPORT | Clinical Summary ---
Author Author [facility] Organization [facility] Address Unknown Phone Unavailable Care Team Providers Care Behavior Analyst Name Role Phone AdriannahugoTova weathers PCP Allergies [...] isolate No growth after 5 days of [facility] DEPARTMENT OF incubation. PATHOLOGY AND Comment: GENOMIC MEDICINE Specimen Information Specimen Source: Blood Specimen Site: Unspecified Specimen Blood Performing Organization Address City/State/Zipcode Phone Number [facility] DEPARTMENT OF [address] [place] [address] PATHOLOGY AND GENOMIC MEDICINE * Urinalysis screen and microscopy, with reflex to culture (02/12/2018 5:56 PM) Specimen site Catheterized [facility] DEPARTMENT OF PATHOLOGY AND GENOMIC MEDICINE Color, UA Yellow [facility] DEPARTMENT OF PATHOLOGY AND GENOMIC MEDICINE Appearance, UA Clear [facility] DEPARTMENT OF PATHOLOGY AND GENOMIC MEDICINE Specific gravity, UA 1.016 1.001 - 1.035 [facility] DEPARTMENT OF PATHOLOGY AND GENOMIC MEDICINE pH, UA 6.0 5.0 - 8.5 [facility] DEPARTMENT OF PATHOLOGY AND GENOMIC MEDICINE Protein, UA Negative Negative [facility] DEPARTMENT OF PATHOLOGY AND GENOMIC MEDICINE Glucose, UA Negative Negative [facility] DEPARTMENT OF PATHOLOGY AND GENOMIC MEDICINE Ketones, UA Trace (A) Negative [facility] DEPARTMENT OF PATHOLOGY AND GENOMIC MEDICINE Bilirubin, UA Negative Negative [facility] DEPARTMENT OF PATHOLOGY AND GENOMIC MEDICINE Blood, UA Negative Negative [facility] DEPARTMENT OF PATHOLOGY AND GENOMIC MEDICINE Nitrite, UA Negative Negative [facility] DEPARTMENT OF PATHOLOGY AND GENOMIC MEDICINE Urobilinogen, UA Negative <2.0 [facility] DEPARTMENT OF PATHOLOGY AND GENOMIC MEDICINE Leukocyte esterase, UA Negative Negative [facility] DEPARTMENT OF PATHOLOGY AND GENOMIC MEDICINE WBC, UA 0-5 0 - 1 /HPF [facility] DEPARTMENT OF PATHOLOGY AND GENOMIC MEDICINE RBC, UA 0-5 0 - 5 /HPF [facility] DEPARTMENT OF PATHOLOGY AND GENOMIC MEDICINE Bacteria, UA None seen None seen [facility] DEPARTMENT OF PATHOLOGY AND GENOMIC MEDICINE Yeast, UA None seen [facility] DEPARTMENT OF PATHOLOGY AND GENOMIC MEDICINE Yeast with pseudohyphae, None seen [facility] PATHOLOGY AND GENOMIC MEDICINE Specimen Urine Performing Organization Address City/[facility] Phone Number [facility] [id number] [place] [address] [place] [phone] PATHOLOGY AND GENOMIC [facility] * Estimated GFR (02/12/2018 5:56 PM) GFR Non Af Amer 81 mL/min/1.73 m2 [facility] DEPARTMENT OF PATHOLOGY AND GENOMIC MEDICINE GFR Af Amer >90 mL/min/1.73 m2 [facility] DEPARTMENT OF Comment: PATHOLOGY AND Chronic kidney [...] Americans. Specimen Plasma specimen Performing Organization Address City/[facility] Cent[facility]ode Phone Number [address] [place] [phone] PATHOLOGY [facility] * CBC with platelet and differential (02/12/2018 5:56 PM) WBC 9.95 4.50 - 11.00 k/uL [facility] DEPARTMENT OF PATHOLOGY AND GENOMIC MEDICINE RBC 3.88 (L) 4.40 - 6.00 m/uL [facility] DEPARTMENT OF PATHOLOGY AND GENOMIC MEDICINE HGB 12.3 (L) 14.0 - 18.0 g/dL [facility] DEPARTMENT OF PATHOLOGY AND GENOMIC MEDICINE HCT 37.2 (L) 41.0 - 51.0 % [facility] DEPARTMENT OF PATHOLOGY AND GENOMIC MEDICINE MCV 95.9 82.0 - 100.0 fL [facility] DEPARTMENT OF PATHOLOGY AND GENOMIC MEDICINE MCH 31.7 27.0 - 34.0 pg [facility] DEPARTMENT OF PATHOLOGY AND GENOMIC MEDICINE MCHC 33.1 31.0 - 37.0 g/dL [facility] DEPARTMENT OF PATHOLOGY AND GENOMIC MEDICINE RDW - SD 51.6 37.0 - 55.0 fL [facility] DEPARTMENT OF PATHOLOGY AND GENOMIC MEDICINE MPV 10.3 8.8 - 13.2 fL [facility] DEPARTMENT OF PATHOLOGY AND GENOMIC MEDICINE Platelet count 220 150 - 400 k/uL [facility] DEPARTMENT OF PATHOLOGY AND GENOMIC MEDICINE Nucleated RBC 0.00 /100 WBC [facility] DEPARTMENT OF PATHOLOGY AND GENOMIC MEDICINE Neutrophils 73.1 (H) 39.0 - 69.0 % [facility] DEPARTMENT OF PATHOLOGY AND GENOMIC MEDICINE Lymphocytes 18.6 (L) 25.0 - 45.0 % [facility] DEPARTMENT OF PATHOLOGY AND GENOMIC MEDICINE Monocytes 6.9 0.0 - 10.0 % [facility] DEPARTMENT OF PATHOLOGY AND GENOMIC MEDICINE Eosinophils 0.7 0.0 - 5.0 % [facility] DEPARTMENT OF PATHOLOGY AND GENOMIC MEDICINE Basophils 0.4 0.0 - 1.0 % [facility] DEPARTMENT OF PATHOLOGY AND GENOMIC MEDICINE Specimen Blood Performing Organization Address [facility] Phone Number [address] [place] [address] PATHOLOGY [facility] * Urine culture (02/12/2018 5:56 PM) Urine culture SEE COMMENTComment: [facility] DEPARTMENT OF Bacteriuria screen negative. PATHOLOGY AND [facility] MEDICINE Specimen Urine Performing Organization Address [facility] Phone Number [address] [place] [address] PATHOLOGY [facility] * Lipase level (02/12/2018 5:56 PM) Lipase 94 (H) 13 - 60 U/L [facility] DEPARTMENT OF PATHOLOGY AND GENOMIC MEDICINE Specimen Plasma specimen Performing Organization Address [facility] Phone Number [address] [place] [address] PATHOLOGY [facility] * Hepatic function panel (02/12/2018 5:56 PM) Albumin 4.1 3.5 - 5.0 g/dL [facility] DEPARTMENT OF PATHOLOGY AND GENOMIC MEDICINE Total bilirubin 0.3 0.0 - 1.2 mg/dL [facility] DEPARTMENT OF PATHOLOGY AND GENOMIC MEDICINE Bilirubin direct <0.1 0.0 - 0.3 mg/dL [facility] DEPARTMENT OF PATHOLOGY AND GENOMIC MEDICINE Alkaline phosphatase 128 40 - 129 U/L [facility] DEPARTMENT OF PATHOLOGY AND GENOMIC MEDICINE Protein 7.6 6.3 - 8.3 g/dL [facility] DEPARTMENT OF Comment: PATHOLOGY AND [place] GENOMIC MEDICINE 4.6-7.0 g/dL 1 week 4.4-7.6 g/dL 7 months-1year 5.1-7.3 g/dL 1-2 years5.6-7 .5 g/dL >3 years6.0-8 .0 g/dL 18-150 6.3-8.3 g/dL ALT 25 5 - 50 U/L [facility] DEPARTMENT OF PATHOLOGY AND GENOMIC MEDICINE AST 23 10 - 50 U/L [facility] DEPARTMENT OF PATHOLOGY AND GENOMIC MEDICINE Specimen Plasma specimen Performing Organization Address City/[facility] Centercode Phone Number [facility] DEPARTMENT [address] [place] [address] PATHOLOGY [facility] * Basic metabolic panel (02/12/2018 5:56 PM) Sodium 140 135 - 148 mEq/L [facility] DEPARTMENT OF PATHOLOGY AND GENOMIC MEDICINE Potassium 4.2 3.5 - 5.0 mEq/L [facility] DEPARTMENT OF PATHOLOGY AND GENOMIC MEDICINE Chloride 100 98 - 112 mEq/L [facility] DEPARTMENT OF PATHOLOGY AND GENOMIC MEDICINE CO2 28 24 - 31 mEq/L [facility] DEPARTMENT OF PATHOLOGY AND GENOMIC MEDICINE Anion gap 12@ANIO 7 - 15 mEq/L [facility] DEPARTMENT OF PATHOLOGY AND GENOMIC MEDICINE BUN 31 (H) 8 - 23 mg/dL [facility] DEPARTMENT OF PATHOLOGY AND GENOMIC MEDICINE Creatinine 0.9 0.7 - 1.2 mg/dL [facility] DEPARTMENT OF PATHOLOGY AND GENOMIC MEDICINE Glucose 93 65 - 99 mg/dL [facility] DEPARTMENT OF PATHOLOGY AND GENOMIC MEDICINE Calcium 9.4 8.8 - 10.2 mg/dL [facility] DEPARTMENT OF PATHOLOGY AND GENOMIC MEDICINE Specimen Plasma specimen Performing Organization Address City/[facility] Cent[facility]ode Phone Number [facility] [place] [address] [place] [address] PATHOLOGY AND GENOMIC MEDICINE after 04/22/2017 Insurance Payer Benefit Subscriber ID Type Phone Address Plan / Group MEDICARE MEDICARE xxxxxxxxxx Medicare [place] [address]
== END 2018-04-30 14:07 | DRG 698 ==
LOC: ER 13:42 → ERHOLD 16:03 → IMCU 17:29 → OBSVTOIN 04-24 08:03 → MED/SURG3 04-24 12:43
PROVIDERS: ADMIT Internal Medicine; ATTEND Internal Medicine
PROC: 02HV33Z Insertion of Infusion Device into Superior Vena Cava, Percutaneous Approach (ICD-10-PCS; principal; 2018-04-29)
DX: T83.511A Infection and inflammatory reaction due to indwelling urethral catheter, initial encounter (principal); A41.9 Sepsis, unspecified organism; N17.9 Acute kidney failure, unspecified; N39.0 Urinary tract infection, site not specified; F03.90 Unspecified dementia, unspecified severity, without behavioral disturbance, psychotic disturbance, mood disturbance, and anxiety; G20 Parkinson's disease; F02.80 Dementia in other diseases classified elsewhere, unspecified severity, without behavioral disturbance, psychotic disturbance, mood disturbance, and anxiety; K57.90 Diverticulosis of intestine, part unspecified, without perforation or abscess without bleeding; I10 Essential (primary) hypertension; K59.00 Constipation, unspecified; B96.4 Proteus (mirabilis) (morganii) as the cause of diseases classified elsewhere; E87.6 Hypokalemia; D64.9 Anemia, unspecified; R31.29 Other microscopic hematuria
CPT/HCPCS: 36415; 36569; 70450; 71045; 74176; 80048; 80053; 81001; 82550; 82553; 83605; 83690; 83735; 84132; 84443; 84484; 85025; 85610; 85730; 87040; 87086; 87186; 93005; 96361; 96376; 97139; 99284; G0378; J0692; J0696; J1650; J7030